=== PATIENT | female | born 1995 | race Two or more races ===

== ENCOUNTER 2019-09-23 22:56 | Emergency (ER) | payer MEDICAID ==
[2019-09-23] MEDS ORDERED: Sodium Chloride 0.9% 1,000 ML IV SCH (23:45)
--- NOTE | 2019-09-23 23:45 | EDM.PDOC ---
ED HPI GENERAL MEDICAL PROBLEM - General Chief Complaint: Genitourinary Problem Stated Complaint: POSS UTI Time Seen by Provider: 09/23/19 23:00 Source of Information: Reports: Patient History Limitations: Reports: No Limitations - History of Present Illness INITIAL COMMENTS - FREE TEXT/NARRATIVE: TRIAGE NOTE -- pt started having burning sensation when voiding, associated with hematuria, increased frequency and dribbling. [ End ] Patient is certain that this represents a urinary tract infection. Initially did not recall that she had a history of kidney stones. There is been no flank pain. Apparently a couple of years ago she was being evaluated for "colitis" and on CT scan there was some evidence of a stone. Apparently she has never had a urological evaluation or intervention that she recalls. There is been no fever or other symptom of acute medical illness otherwise. Risk factors would be history of stones. Not aware of any family history of stones herself. She has not taken any medication or tried any other intervention to moderate symptoms. She took a home test and says it was read as negative. Lower Abdomen Pain Score (Numeric/FACES): 6 - Related Data Allergies Allergy/AdvReac Type Severity Reaction Status Date / Time No Known Allergies Allergy Verified 09/23/19 23:10 Home Meds: Home Meds Acetaminophen/oxyCODONE [Percocet 325-5 MG] 1 each PO Q6H PRN #12 tab 09/24/19 [ Rx] Tamsulosin [Tamsulosin 24 Hr] 0.4 mg PO DAILY #15 cap.er 09/24/19 [Rx] Past Medical History Genitourinary History: Reports: Renal Calculus [employer] History: Reports: Social & Family History - Tobacco Use Smoking Status *Q: Former Smoker - Caffeine Use Caffeine Use: Reports: None - Recreational Drug Use Recreational Drug Use: No ED ROS GENERAL - Review of Systems Review Of Systems: Comprehensive ROS is negative, except as noted in HPI. ED EXAM, RENAL/ - Physical Exam Exam: See Below Exam Limited By: No Limitations General Appearance: Alert, WD/WN, No Apparent Distress Eye Exam: Bilateral Eye: EOMI, PERRL Ears: Normal External Exam Nose: Normal Inspection Throat/Mouth: Normal Inspection Head: Atraumatic, Normocephalic Neck: Normal Inspection, Supple, Non-Tender Respiratory/Chest: No Respiratory Distress, Lungs Clear, Normal Breath Sounds Cardiovascular: Regular Rate, Rhythm, No Edema GI/Abdominal: Soft, Non-Tender Back Exam: Normal Inspection. No: CVA Tenderness (L), CVA Tenderness (R) Extremities: Normal Inspection, Non-Tender, No Pedal Edema Neurological: Alert, Oriented, Normal Cognition, No Motor/Sensory Deficits Psychiatric: Normal Affect, Normal Mood Skin Exam: Warm, Dry Course - Vital Signs Last Recorded V/S: Last Vital Signs Temp 36.4 C 09/23/19 23:03 Pulse 68 09/23/19 23:03 Resp 20 09/23/19 23:03 BP 114/72 09/23/19 23:03 Pulse Ox 98 09/23/19 23:03 - Orders/Labs/Meds Orders: Active Orders 24 hr Category Date Time Status Abdomen Pelvis wo Cont [CT] Stat Exams 09/23/19 23:35 Taken Sodium Chloride 0.9% [Normal Saline] 1,000 ml Med 09/23/19 23:45 Active IV ASDIRECTED Medication Orders Sodium Chloride (Normal Saline) 1,000 mls @ 150 mls/hr IV ASDIRECTED REINIER Last Admin: 09/24/19 00:02 Dose: 150 mls/hr Labs: Laboratory Tests 09/23/19 09/23/19 Range/Units 23:04 23:04 Urine Color [place] H (Yellow) Urine Appearance Clear (Clear) Urine pH 7.0 (5.0-8.0) Ur Specific [place] 1.015 (1.005-1.030) Urine Protein 1+ H (Negative) Urine Glucose (UA) Negative (Negative) Urine Ketones Negative (Negative) Urine Occult Blood 3+ H (Negative) Urine Nitrite Negative (Negative) Urine Bilirubin Negative (Negative) Urine Urobilinogen 0.2 (0.2-1.0) Ur Leukocyte Esterase Negative (Negative) Urine RBC 30-40 H (0-5) /hpf Urine WBC 0-5 (0-5) /hpf Ur Squamous Epith Cells 0-5 (0-5) /hpf Urine Bacteria Rare (FEW) /hpf Urine Mucus Not seen (FEW) /hpf Urine HCG, Qual Negative (NEGATIVE) Meds: Medications Generic Name Dose Route Start Last Admin Trade Name Freq PRN Reason Stop Dose Admin Sodium Chloride 1,000 mls @ 150 mls/hr 09/23/19 23:45 09/24/19 00:02 Normal Saline IV 150 mls/hr ASDIRECTED REINIER Administration - Re-Assessments/Exams Free Text/Narrative Re-Assessment/Exam: 09/24/19 00:34 CT shows a 4 x 5 mm stone left distal ureter, mild hydroureter, "no significant hydronephrosis." See instructions to patient. Departure - Departure Time of Disposition: 00:39 Disposition: Home, Self-Care 01 Condition: Good Clinical Impression: Left ureteral stone - Discharge Information *PRESCRIPTION DRUG MONITORING PROGRAM REVIEWED*: Not Applicable *COPY OF PRESCRIPTION DRUG MONITORING REPORT IN PATIENT THOR: Not Applicable Prescriptions: Acetaminophen/oxyCODONE [Percocet 325-5 MG] 1 each PO Q6H PRN #12 tab PRN Reason: Pain (Moderate 4-6) Tamsulosin [Tamsulosin 24 Hr] 0.4 mg PO DAILY #15 cap.er Referrals: PCP,None [Primary Care Provider] - Maycol Oconnell MD [Ordering Only Provider] - Forms: ED Department Discharge Additional Instructions: You have a small stone in the left ureter. You have been given two prescriptions , one (Flomax) to relax the ureter and allosw the stone to pass, and a pain pill. You are traveling to [place] this weekend, but you should contact Dr. Oconnell urologist in [place] in the morning and if there is no need to see him right away he can refer you to a urologist in [place]. Return to ER here or go to one at your destination for fever, vomiting, any concern at all. Push fluids and maintain brisk urine output. Sepsis Event Note (ED) - Evaluation Sepsis Screening Result: No Definite Risk - Focused Exam Vital Signs: Vital Signs Temp Pulse Resp BP Pulse Ox 09/23/19 23:03 36.4 C 68 20 114/72 98 - My Orders Last 24 Hours: My Active Orders 09/23/19 23:35 Abdomen Pelvis wo Cont [CT] Stat 09/23/19 23:45 Sodium Chloride 0.9% [Normal Saline] 1,000 ml IV ASDIRECTED - Assessment/Plan Last 24 Hours: My Active Orders 09/23/19 23:35 Abdomen Pelvis wo Cont [CT] Stat 09/23/19 23:45 Sodium Chloride 0.9% [Normal Saline] 1,000 ml IV ASDIRECTED
--- NOTE | 2019-09-24 05:31 | CT ---
CT abdomen and pelvis Technique: Multiple axial sections were obtained from above the dome of the diaphragm inferiorly through the pubic symphysis. Intravenous and oral contrast not utilized. Study has been performed as a ureteral stone protocol. Findings: Kidneys show no abnormal calcifications. Very minimal inflammatory change around the distal ureter is seen. There is a 5 mm stone within the distal left ureter which causes no significant hydronephrosis. This stone occurs approximately 4.5-5 cm from the UVJ. Bladder is slightly thick-walled believed to represent lack of distention.. Visualized lung bases show nothing acute. Noncontrast appearance of the liver shows no focal abnormality. Spleen appears within normal limits. Adrenal glands show no nodule. Pancreas shows no discrete abnormality. Gallbladder contains no calcified gallstones. Aorta shows no aneurysm. Appendix is seen which is normal. No pelvic mass or adenopathy is seen. No free fluid or inflammatory change is seen within the abdomen or pelvis. Bone window settings were reviewed which appear within normal limits for the patient's age. Impression: 1. 5 mm stone within the distal left ureter. This causes no significant proximal hydronephrosis. 2. No additional abnormality is appreciated on CT study of the abdomen and pelvis. Diagnostic code #3 This report was dictated in MDT I agree with preliminary report from [facility], finalized on 09/24/19, 5:40 AM Central Daylight Time
== END 2019-09-24 00:57 | disposition home or self-care (01) ==
LOC: JD.ED 22:56
DX: N20.1 Calculus of ureter (principal); Z87.891 Personal history of nicotine dependence
CPT/HCPCS: 74176; 81001; 81025; 99284; J7030; 99283

== ENCOUNTER 2019-09-28 08:22 | Emergency (ER) | payer MEDICAID ==
[2019-09-28] MEDS ORDERED: Sodium Chloride 0.9% 10 ML Syringe FLUSH PRN (08:56)
[2019-09-28] MEDS ORDERED: Ondansetron 4 MG/2 ML SDV IVPUSH ONE (08:56)
[2019-09-28] MEDS ORDERED: HYDROmorphone 1 MG/ML Syringe IVPUSH ONE (08:57)
[2019-09-28] MEDS ORDERED: Ketorolac 30 MG/ML SDV IVPUSH ONE (08:57)
[2019-09-28] MEDS ORDERED: Sodium Chloride 0.9% 1,000 ML IV SCH (09:00)
--- NOTE | 2019-09-28 09:28 | EDM.PDOC ---
ED HPI GENERAL MEDICAL PROBLEM - General Chief Complaint: Flank Pain Stated Complaint: KIDNEY PAIN NOT BETTER Time Seen by Provider: 09/28/19 08:42 Source of Information: Reports: Patient History Limitations: Reports: No Limitations - History of Present Illness INITIAL COMMENTS - FREE TEXT/NARRATIVE: The patient presents with left flank and left lower abdominal pain. She was here 4 days ago and she had a 5mm stone in the distal left ureter. She does not think she has passed the stone. She felt good until today. She has the pain and some nausea and she has some hematuria. She has no fever, chills, cough, congestion, runny nose, chest pain, or shortness of breath. Onset: Gradual Duration: Day(s): Location: Reports: Abdomen, Back Quality: Reports: Sharp Severity: Severe Improves with: Reports: None Worsens with: Reports: None Associated Symptoms: Reports: Nausea/Vomiting. Denies: Chest Pain, Cough, Fever /Chills, Headaches, Shortness of Breath - Related Data Allergies Allergy/AdvReac Type Severity Reaction Status Date / Time No Known Allergies Allergy Verified 09/23/19 23:10 Home Meds: Home Meds Acetaminophen/oxyCODONE [Percocet 325-5 MG] 1 each PO Q6H PRN #12 tab 09/24/19 [ Rx] Tamsulosin [Tamsulosin 24 Hr] 0.4 mg PO DAILY #15 cap.er 09/24/19 [Rx] Hydrocodone/Acetaminophen [Hydrocodone-Acetamin 5-325 mg] 1 - 2 each PO Q6HR PRN #20 tablet 09/28/19 [Rx] Past Medical History Genitourinary History: Reports: Renal Calculus [employer] History: Reports: Social & Family History - Family History Family Medical History: Noncontributory - Tobacco Use Smoking Status *Q: Never Smoker - Caffeine Use Caffeine Use: Reports: None ED ROS GENERAL - Review of Systems Review Of Systems: See Below Constitutional: Reports: No Symptoms HEENT: Reports: No Symptoms Respiratory: Reports: No Symptoms Cardiovascular: Reports: No Symptoms Endocrine: Reports: No Symptoms GI/Abdominal: Reports: Abdominal Pain, Nausea. Denies: Diarrhea, Vomiting : Reports: Flank Pain, Hematuria ED EXAM, RENAL/ - Physical Exam Exam: See Below Exam Limited By: No Limitations General Appearance: Alert, Mild Distress Ears: Normal External Exam Nose: Normal Inspection Head: Atraumatic, Normocephalic Neck: Normal Inspection Respiratory/Chest: No Respiratory Distress, Lungs Clear, Normal Breath Sounds Cardiovascular: Regular Rate, Rhythm, No Edema, No Murmur GI/Abdominal: Soft, Non-Tender, No Organomegaly, No Mass Back Exam: Other (Left lower back pain) Extremities: Normal Inspection Neurological: Alert, Oriented, No Motor/Sensory Deficits Course - Vital Signs Last Recorded V/S: Last Vital Signs Temp 97.7 F 09/28/19 08:28 Pulse 66 09/28/19 08:28 Resp 16 09/28/19 08:28 BP 115/87 09/28/19 08:28 Pulse Ox 99 09/28/19 08:28 - Orders/Labs/Meds Orders: Active Orders 24 hr Category Date Time Status Peripheral IV Care [RC] . DIRECTED Care 09/28/19 08:57 Active CBC WITH AUTO DIFF [HEME] Stat Lab 09/28/19 09:05 Results Sodium Chloride 0.9% [Normal Saline] 1,000 ml Med 09/28/19 09:00 Active IV ASDIRECTED Sodium Chloride 0.9% [Saline Flush] Med 09/28/19 08:56 Active 10 ml FLUSH ASDIRECTED PRN ED Antiemetic Medication Reflex [OM.PC] Stat Oth 09/28/19 08:57 Ordered Peripheral IV Insertion Adult [OM.PC] Stat Oth 09/28/19 08:56 Ordered Medication Orders Sodium Chloride (Normal Saline) 1,000 mls @ 125 mls/hr IV ASDIRECTED REINIER Last Admin: 09/28/19 09:10 Dose: 125 mls/hr Sodium Chloride (Saline Flush) 10 ml FLUSH ASDIRECTED PRN PRN Reason: Keep Vein Open Last Admin: 09/28/19 09:11 Dose: 10 ml Labs: Laboratory Tests 09/28/19 09/28/19 09/28/19 Range/Units 08:30 09:05 09:05 WBC 8.58 (3.98-10.04) K/mm3 RBC 5.15 (3.98-5.22) M/mm3 Hgb 13.2 (11.2-15.7) gm/dl Hct 41.3 (34.1-44.9) % MCV 80.2 (79.4-94.8) fl MCH 25.6 (25.6-32.2) pg MCHC 32.0 L (32.2-35.5) g/dl RDW Std Deviation 41.9 (36.4-46.3) fL Plt Count 256 (182-369) K/mm3 MPV 10.7 (9.4-12.3) fl Neut % (Auto) 58.5 (34.0-71.1) % Lymph % (Auto) 31.7 (19.3-51.7) % [place] % (Auto) 5.7 (4.7-12.5) % Eos % (Auto) 3.6 (0.7-5.8) Baso % (Auto) 0.3 (0.1-1.2) % Neut # (Auto) 5.01 (1.56-6.13) K/mm3 Lymph # (Auto) 2.72 (1.18-3.74) K/mm3 [place] # (Auto) 0.49 H (0.24-0.36) K/mm3 Eos # (Auto) 0.31 (0.04-0.36) K/mm3 Baso # (Auto) 0.03 (0.01-0.08) K/mm3 Sodium 142 (136-145) mEq/L Potassium 3.5 (3.5-5.1) mEq/L Chloride 106 (98-107) mEq/L Carbon Dioxide 27 (21-32) mEq/L Anion Gap 12.5 (5-15) BUN 7 (7-18) mg/dL Creatinine 0.7 (0.55-1.02) mg/dL Est Cr Clr Drug Dosing 100.74 mL/min Estimated GFR (MDRD) > 60 (>60) mL/min BUN/Creatinine Ratio 10.0 L (14-18) Glucose 93 (74-106) mg/dL Calcium 8.7 (8.5-10.1) mg/dL Total Bilirubin 0.6 (0.2-1.0) mg/dL AST 12 L (15-37) U/L ALT 18 (14-59) U/L Alkaline Phosphatase 101 (46-116) U/L Total Protein 7.2 (6.4-8.2) g/dl Albumin 3.8 (3.4-5.0) g/dl Globulin 3.4 gm/dL Albumin/Globulin Ratio 1.1 (1-2) HCG, Qual (NEGATIVE) Urine Color [place] H (Yellow) Urine Appearance Slt cloudy H (Clear) Urine pH 6.5 (5.0-8.0) Ur Specific [place] > or = 1.030 (1.005-1.030) Urine Protein 3+ H (Negative) Urine Glucose (UA) Trace H (Negative) Urine Ketones Trace H (Negative) Urine Occult Blood 3+ H (Negative) Urine Nitrite Negative (Negative) Urine Bilirubin 1+ H (Negative) Urine Urobilinogen 0.2 (0.2-1.0) Ur Leukocyte Esterase Negative (Negative) Urine RBC 50-75 H (0-5) /hpf Urine WBC 0-5 (0-5) /hpf Ur Squamous Epith Cells 0-5 (0-5) /hpf Urine Bacteria Few (FEW) /hpf Urine Mucus Few (FEW) /hpf 06/15/20 Range/Units 09:05 WBC (3.98-10.04) K/mm3 RBC (3.98-5.22) M/mm3 Hgb (11.2-15.7) gm/dl Hct (34.1-44.9) % MCV (79.4-94.8) fl MCH (25.6-32.2) pg MCHC (32.2-35.5) g/dl RDW Std Deviation (36.4-46.3) fL Plt Count (182-369) K/mm3 MPV (9.4-12.3) fl Neut % (Auto) (34.0-71.1) % Lymph % (Auto) (19.3-51.7) % [place] % (Auto) (4.7-12.5) % Eos % (Auto) (0.7-5.8) Baso % (Auto) (0.1-1.2) % Neut # (Auto) (1.56-6.13) K/mm3 Lymph # (Auto) (1.18-3.74) K/mm3 [place] # (Auto) (0.24-0.36) K/mm3 Eos # (Auto) (0.04-0.36) K/mm3 Baso # (Auto) (0.01-0.08) K/mm3 Sodium (136-145) mEq/L Potassium (3.5-5.1) mEq/L Chloride (98-107) mEq/L Carbon Dioxide (21-32) mEq/L Anion Gap (5-15) BUN (7-18) mg/dL Creatinine (0.55-1.02) mg/dL Est Cr Clr Drug Dosing mL/min Estimated GFR (MDRD) (>60) mL/min BUN/Creatinine Ratio (14-18) Glucose (74-106) mg/dL Calcium (8.5-10.1) mg/dL Total Bilirubin (0.2-1.0) mg/dL AST (15-37) U/L ALT (14-59) U/L Alkaline Phosphatase (46-116) U/L Total Protein (6.4-8.2) g/dl Albumin (3.4-5.0) g/dl Globulin gm/dL Albumin/Globulin Ratio (1-2) HCG, Qual Negative (NEGATIVE) Urine Color (Yellow) Urine Appearance (Clear) Urine pH (5.0-8.0) Ur Specific [place] (1.005-1.030) Urine Protein (Negative) Urine Glucose (UA) (Negative) Urine Ketones (Negative) Urine Occult Blood (Negative) Urine Nitrite (Negative) Urine Bilirubin (Negative) Urine Urobilinogen (0.2-1.0) Ur Leukocyte Esterase (Negative) Urine RBC (0-5) /hpf Urine WBC (0-5) /hpf Ur Squamous Epith Cells (0-5) /hpf Urine Bacteria (FEW) /hpf Urine Mucus (FEW) /hpf Meds: Medications Generic Name Dose Route Start Last Admin Trade Name Julián PRN Reason Stop Dose Admin Sodium Chloride 1,000 mls @ 125 mls/hr 09/28/19 09:00 09/28/19 09:10 Normal Saline IV 125 mls/hr ASDIRECTED REINIER Administration Sodium Chloride 10 ml 09/28/19 08:56 09/28/19 09:11 Saline Flush FLUSH 10 ml ASDIRECTED PRN Administration Keep Vein Open Discontinued Medications Generic Name Dose Route Start Last Admin Trade Name Freq PRN Reason Stop Dose Admin Hydromorphone HCl 1 mg 09/28/19 08:57 09/28/19 09:07 Dilaudid IVPUSH 09/28/19 08:58 1 mg ONETIME ONE Administration Ketorolac Tromethamine 30 mg 09/28/19 08:57 09/28/19 09:08 Toradol IVPUSH 09/28/19 08:58 30 mg ONETIME ONE Administration Ondansetron HCl 4 mg 09/28/19 08:56 09/28/19 09:08 Zofran IVPUSH 09/28/19 08:57 4 mg ONETIME ONE Administration - Re-Assessments/Exams Free Text/Narrative Re-Assessment/Exam: 09/28/19 09:27 I ordered an IV NS at 125mL/hr, zofran 4mg IV, toradol 30mg IV, dilaudid 1mg IV , labs and UA. 09/28/19 10:14 Her UA shows blood but no UTI. Her CBC and CMP look good. Her HCG is negative. She feels much better. She did have a follow up appointment with Dr Oconnell in [place] but on Saturday she is traveling back to [place] and will follow up there. I will make a copy of her CD. Departure - Departure Time of Disposition: 10:20 Disposition: Home, Self-Care 01 Condition: Good Clinical Impression: Left ureteral stone, Kidney stone on left side, Ureteral colic - Discharge Information *PRESCRIPTION DRUG MONITORING PROGRAM REVIEWED*: Not Applicable *COPY OF PRESCRIPTION DRUG MONITORING REPORT IN PATIENT THOR: Not Applicable Prescriptions: Hydrocodone/Acetaminophen [Hydrocodone-Acetamin 5-325 mg] 1 - 2 each PO Q6HR PRN #20 tablet PRN Reason: Pain Referrals: PCP,None [Primary Care Provider] - Forms: ED Department Discharge Additional Instructions: Drink plenty of fluids. Take the flomax daily. Take motrin or tylenol for pain. If that does not help, try the hydrocodone. Follow up with urology if you do not pass the stone within a week. Please return if you are worse. Sepsis Event Note (ED) - Evaluation Sepsis Screening Result: No Definite Risk - Focused Exam Vital Signs: Vital Signs Temp Pulse Resp BP Pulse Ox 09/28/19 08:28 97.7 F 66 16 115/87 99 - My Orders Last 24 Hours: My Active Orders 09/28/19 08:56 Sodium Chloride 0.9% [Saline Flush] 10 ml FLUSH ASDIRECTED PRN Peripheral IV Insertion Adult [OM.PC] Stat 09/28/19 08:57 Peripheral IV Care [RC] . DIRECTED ED Antiemetic Medication Reflex [OM.PC] Stat 09/28/19 09:00 Sodium Chloride 0.9% [Normal Saline] 1,000 ml IV ASDIRECTED 09/28/19 09:05 CBC WITH AUTO DIFF [HEME] Stat - Assessment/Plan Last 24 Hours: My Active Orders 09/28/19 08:56 Sodium Chloride 0.9% [Saline Flush] 10 ml FLUSH ASDIRECTED PRN Peripheral IV Insertion Adult [OM.PC] Stat 09/28/19 08:57 Peripheral IV Care [RC] . DIRECTED ED Antiemetic Medication Reflex [OM.PC] Stat 09/28/19 09:00 Sodium Chloride 0.9% [Normal Saline] 1,000 ml IV ASDIRECTED 09/28/19 09:05 CBC WITH AUTO DIFF [HEME] Stat
== END 2019-09-28 10:50 | disposition home or self-care (01) ==
LOC: JD.ED 08:22
DX: N20.2 Calculus of kidney with calculus of ureter (principal)
CPT/HCPCS: 36415; 80053; 81001; 84703; 85025; 96361; 96374; 96375; 99284; J1170; J1885; J2405; J7030; 99283